=== PATIENT | male | born 1995 | race Two or more races ===

== ENCOUNTER 2017-07-31 20:15 | Emergency (ER) | payer MEDICAID | END 2017-07-31 20:41 | disposition left against medical advice (07) | LOC: M ED 20:15 | DX: K92.1 Melena (principal); Z53.21 Procedure and treatment not carried out due to patient leaving prior to being seen by health care provider ==

== ENCOUNTER → 2018-09-03 | Outpatient (REF) | payer BC | LOC: M LAB REF 16:30 | PROVIDERS: ATTEND Plastic Surgery Surgery of the Hand | DX: D23.30 Other benign neoplasm of skin of unspecified part of face (principal) ==

== ENCOUNTER → 2018-11-01 | Outpatient (REF) | payer BC, OTHER, MEDICAID ==
[2018-11-01 19:22] LABS: APPEARANCE, URINE CLEAR (CLEAR); BACTERIA, URINE AUTO NEGATIVE (NEGATIVE); BILIRUBIN, URINE AUTO NEGATIVE (NEGATIVE); BLOOD, URINE BLOOD 1+ (NEGATIVE); COLOR, URINE YELLOW (YELLOW); GLUCOSE, URINE (UA) AUTO NEGATIVE (NEGATIVE); KETONE, URINE AUTO NEGATIVE (NEGATIVE); LEUKOCYTE ESTERASE, URINE AUTO NEGATIVE (NEGATIVE); NITRITE, URINE AUTO NEGATIVE (NEGATIVE); PROTEIN, URINE AUTO 3+ mg/dL (NEGATIVE); RBC, URINE AUTO 6 /HPF (0-3); SPECIFIC GRAVITY URINE AUTO 1.013 (1.002-1.035); SQUAMOUS EPITHELIAL CELL UR AU 0 /HPF (0-6); UROBILINOGEN, URINE AUTO 0.2 mg/dL (0.0-2.0); WBC, URINE AUTO 2 /HPF (0-3)
[2018-11-01 20:52] LABS: CHLAMYDIA DNA AMPLIFICATION NEGATIVE (NEGATIVE); GC DNA AMPLIFICATION NEGATIVE (NEGATIVE)
[2018-11-04 10:50] LABS: HIV 1&2 SCREEN CENTAUR NEGATIVE (NEGATIVE)
== END ==
LOC: M SFHCADAM 15:09
PROVIDERS: ATTEND Family Medicine
DX: N48.89 Other specified disorders of penis (principal); Z72.51 High risk heterosexual behavior

== ENCOUNTER → 2021-02-02 | Outpatient (CLI) | payer BC, OTHER, MEDICAID ==
--- NOTE | 2021-02-03 00:18 | REP ---
INDICATION: AWAITING ORGAN TRANSPLANT COMPARISON: None. TECHNIQUE: PA and lateral. FINDINGS: The mediastinum and cardiac silhouette are normal. Tessio catheter with tip in the right atrium. The lung gaspar are clear and without acute consolidation, effusion, or pneumothorax. The skeletal structures are intact and normal. IMPRESSION: No acute cardiopulmonary process. <Electronically signed by Elian Kirkland > 02/03/21 0014
== END ==
LOC: M ADAMS 13:06
PROVIDERS: ATTEND Internal Medicine Nephrology
DX: Z76.82 Awaiting organ transplant status (principal)

== ENCOUNTER → 2021-02-08 | Outpatient (CLI) | payer BC ==
[2021-02-08 17:29] LABS: BASO % 0.7 % (0.0-1.0); EOS # 0.2 10^3/uL (0.0-0.5); EOS % 3.2 % (0.0-3.0); HEMOGLOBIN 10.9 g/dl (13.5-17.5); LYMPH # 1.8 10^3/uL (1.5-5.0); LYMPH % 30.5 % (24.0-44.0); MEAN CORPUSCULAR HGB CONC 32.1 g/dl (32.0-36.5); MEAN CORPUSCULAR VOLUME 84.4 fl (80.0-96.0); MONO # 0.6 10^3/uL (0.0-0.8); MONO % 10.1 % (2.0-8.0); NEUTROPHILS # 3.3 10^3/uL (1.5-8.5); NEUTROPHILS % 55.2 % (36.0-66.0); PLATELET COUNT, AUTOMATED 247 10^3/uL (150-450); RED BLOOD COUNT 4.03 10^6/uL (4.30-6.10); WHITE BLOOD COUNT 5.9 10^3/uL (4.0-10.0)
== END ==
LOC: M WUC 14:58
PROVIDERS: ATTEND Physician Assistant
DX: K92.1 Melena (principal)

== ENCOUNTER → 2021-03-02 | Outpatient (CLI) | payer BC | LOC: M LABSMTC 11:15 | PROVIDERS: ATTEND Surgery Vascular Surgery | DX: Z01.812 Encounter for preprocedural laboratory examination (principal); Z11.52 Encounter for screening for COVID-19; N18.6 End stage renal disease ==

== ENCOUNTER 2021-03-21 20:24 | Emergency (ER) | payer BC ==
[~2021-03-21] VITALS: Ht 188 cm; Wt 81.6 kg
[2021-03-21 20:25] VITALS: BP 141/95
[2021-03-21] MEDS ORDERED: SEVE800T3 (20:49)
[2021-03-21] MEDS ORDERED: AMLO1TAB24 (20:49)
[2021-03-21] MEDS ORDERED: CALC1CAP31 (20:49)
== END 2021-03-21 21:57 | disposition left against medical advice (07) ==
LOC: M ED 20:24
DX: Z53.21 Procedure and treatment not carried out due to patient leaving prior to being seen by health care provider (principal)

== ENCOUNTER → 2021-03-22 | Outpatient (CLI) | payer BC ==
[~2021-03-22] MED LIST: AMLO1TAB24; CALC1CAP31; SEVE800T3
== END ==
LOC: M RAD 09:53
PROVIDERS: ATTEND Surgery Vascular Surgery
DX: N18.6 End stage renal disease (principal); R10.9 Unspecified abdominal pain

== ENCOUNTER → 2021-04-13 | Outpatient (CLI) | payer MEDICARE, BC ==
--- NOTE | 2021-04-13 13:14 | REP ---
INDICATION: COMPLICATIONS WITH PD CATHETER. COMPARISON: 03/22/2021 also without contrast on the only prior. TECHNIQUE: Standard helical technique without intravenous or oral bowel preparatory contrast. FINDINGS: The lung bases are clear and unchanged. There is a small amount of free fluid in the abdomen. The peritoneal dialysis catheter is coiled in the anterior right upper quadrant along the liver edge and hepatic flexure of the colon. There is no evidence of free intraperitoneal air. There is no change in appearance of the solid intra-organs or gallbladder. There is no change in appearance of the pancreas, adrenal glands, or kidneys. There is no change in appearance of the abdominal aorta or para-regions. There is no significant change in appearance of the bowel loops. There is a moderate amount of free fluid in the pelvis which has increased from the prior exam. Bone window technique throughout the examination shows no significant change in the appearance of the imaged osseous structures. IMPRESSION: There has been a change in the position of the peritoneal dialysis catheter. It was previously located in the right pericolic gutter. Findings as described above. <Electronically signed by Garrison Xiong > 04/13/21 [id number]
== END ==
LOC: M RAD 12:48
PROVIDERS: ATTEND Nurse Practitioner Family
DX: T85.611A Breakdown (mechanical) of intraperitoneal dialysis catheter, initial encounter (principal)

== ENCOUNTER → 2021-05-24 | Outpatient (POV) | payer BC, MEDICARE ==
[~2021-05-24] VITALS: Ht 188 cm; Wt 79.5 kg
[2021-05-24 10:45] VITALS: BP 132/78
--- NOTE | 2021-05-26 12:34 | IRPN ---
[facility] IR Progress Note IR Progress Note DATE: May 24, 2021 History: Patient had a right chest port placed in November of this year, for sudden onset renal failure. PermCath was placed in [place]. Patient is no longer on hemodialysis and is dialyzing through his peritoneal catheter. PermCath has not been used for dialysis in over a month. Patient would like the PermCath removed. ON EXAMINATION: Right chest permacath in place. No cellulitis. Imaging: I personally reviewed the chest x-ray dated 02/02/2021. There is a right IJ PermCath. Tip at the cavoatrial junction. IMPRESSION: We discussed the risks and benefits of the procedure and patient is willing to proceed. We have scheduled the patient for PermCath removal. Thank you for this referral Allergies Coded Allergies: erythromycin base (Verified Allergy, Unknown, 03/21/21) itching sulfisoxazole (Verified Allergy, Unknown, 03/21/21) itching VS,Fishbone, I+O VS, Fishbone, I+O Vital Signs Date Time Temp Pulse Resp B/P (MAP) Pulse Ox O2 Delivery O2 Flow Rate FiO2 05/24/21 10:45 98.3 71 20 132/78 (96) 97 Room Air JEAN MEZA MD May 26, 2021 12:34
== END ==
LOC: M IRPOV 10:39
PROVIDERS: ATTEND Radiology Diagnostic Radiology
DX: Z45.2 Encounter for adjustment and management of vascular access device (principal); Z95.828 Presence of other vascular implants and grafts; Z88.1 Allergy status to other antibiotic agents

== ENCOUNTER → 2021-05-25 | Outpatient (CLI) | payer BC, MEDICARE ==
[~2021-05-25] MED LIST changes: +LIDOCAINE 1% MDV 20ML VIAL As Ordered ONE
[2021-05-25 14:16] VITALS: BP 146/84
--- NOTE | 2021-05-26 12:36 | IRPON ---
IR Postoperative Note Date Of Procedure: May 25, 2021 Time Of Procedure: 16:00 IR Postoperative Note IR PermCath removal. Clinical indication: Renal failure. The PermCath site was prepped and draped in the usual sterile fashion. Lidocaine was used for local anesthesia. The catheter cuff was dissected out of the soft tissues using blunt dissection. The catheter was removed in it's entirety. Patient tolerated the procedure well, hemostasis achieved and a sterile dressing was applied to the site. Blood loss: Less than 5 mL. Complications: None. Impression: Successful removal of PermCath. JEAN MEZA MD May 26, 2021 12:36
== END ==
LOC: M IRPRO 13:35
PROVIDERS: ATTEND Radiology Diagnostic Radiology
DX: Z45.2 Encounter for adjustment and management of vascular access device (principal); N18.6 End stage renal disease

== ENCOUNTER → 2021-11-19 | Outpatient (REF) | payer BC, MEDICARE ==
[~2021-11-19] MED LIST changes: +CINA30TA4 PO; -LIDOCAINE 1% MDV 20ML VIAL As Ordered ONE; +LOSA100T5 PO; +VELP5CHW PO
[2021-11-19 14:47] LABS: APPEARANCE, BODY FLUID CLEAR (CLEAR); PERITONEAL DIALYSATE FL COLOR COLORLESS (COLORLESS); SOURCE, BODY FLUID PERITONEAL DIALYSATE
== END ==
LOC: M LAB REF 14:21
PROVIDERS: ATTEND Internal Medicine Nephrology
DX: K66.8 Other specified disorders of peritoneum (principal)

== ENCOUNTER → 2021-12-14 | Outpatient (CLI) | payer BC, MEDICARE | LOC: M RAD 13:14 | PROVIDERS: ATTEND Internal Medicine Nephrology | DX: R10.84 Generalized abdominal pain (principal); T85.691S Other mechanical complication of intraperitoneal dialysis catheter, sequela ==

== ENCOUNTER 2021-12-15 12:27 | Inpatient (IN) | payer BC, MEDICARE ==
[~2021-12-15] VITALS: Ht 188 cm; Wt 81.2 kg
[~2021-12-15 12:27] MED LIST changes: -CINA30TA4 PO; -LOSA100T5 PO; -VELP5CHW PO
[2021-12-15] MEDS ORDERED: MORPHINE 4 MG/ML 1ML VIAL/SYRINGE IV ONE (13:25)
[2021-12-15] MEDS ORDERED: ISOVUE-370 76% 100ML VIAL As Ordered ONE (13:48)
[2021-12-15 14:29] LABS: BASO % 0.2 % (0.0-1.0); EOS # 0.3 10^3/uL (0.0-0.5); HEMATOCRIT 24.3 % (42.0-52.0); HEMOGLOBIN 8.2 g/dl (13.5-17.5); LYMPH % 12.6 % (24.0-44.0); MEAN CORPUSCULAR HEMOGLOBIN 27.6 pg (27.0-33.0); MEAN CORPUSCULAR HGB CONC 33.7 g/dl (32.0-36.5); MEAN CORPUSCULAR VOLUME 81.8 fl (80.0-96.0); MONO # 0.6 10^3/uL (0.0-0.8); MONO % 6.7 % (2.0-8.0); NEUTROPHILS # 6.3 10^3/uL (1.5-8.5); PLATELET COUNT, AUTOMATED 178 10^3/uL (150-450); RED BLOOD COUNT 2.97 10^6/uL (4.30-6.10); WHITE BLOOD COUNT 8.3 10^3/uL (4.0-10.0)
[2021-12-15 14:43] LABS: RSV AMPLIFICATION NEGATIVE (NEGATIVE)
[2021-12-15 14:48] LABS: INR 1.24
[2021-12-15 14:49] LABS: PARTIAL THROMBOPLASTIN TIME 37.8 SECONDS (25.9-37.0)
[2021-12-15 14:56] LABS: ALBUMIN 2.7 GM/DL (3.2-5.2); ALT/SGPT 11 U/L (12-78); BILIRUBIN,DIRECT < 0.1 MG/DL (0.0-0.2); BILIRUBIN,TOTAL 0.3 MG/DL (0.2-1.0); BLOOD UREA NITROGEN 102 MG/DL (7-18); CALCIUM LEVEL 9.2 MG/DL (8.5-10.1); CARBON DIOXIDE LEVEL 23 MEQ/L (21-32); CHLORIDE LEVEL 104 MEQ/L (98-107); GLOMERULAR FILTRATION RATE 4.4 (>60); GLUCOSE, FASTING 101 MG/DL (70-100); LIPASE 184 U/L (73-393); POTASSIUM SERUM 4.4 MEQ/L (3.5-5.1); SODIUM LEVEL 135 MEQ/L (136-145); TOTAL PROTEIN 5.6 GM/DL (6.4-8.2)
[2021-12-15] MEDS ORDERED: VANCOMYCIN HCL 1,750 MG in NS 250 ML IV ONE (15:35)
[2021-12-15 15:38] LABS: SOURCE, BODY FLUID PERITONEAL
[2021-12-15 15:39] LABS: APPEARANCE, BODY FLUID TURBID (CLEAR); PERITONEAL FL COLOR PALE YELLOW (COLORLESS); SPEC. GRAVITY BODY FLUIDS 1.022 (NOT ESTABLISHED)
[2021-12-15] MEDS ORDERED: VANCOMYCIN HCL 750 MG, VIAL MATE ADAPTER 1 EACH in NS 250 ML IV ONE (15:45)
[2021-12-15] MEDS ORDERED: VANCOMYCIN HCL 500 MG in D5W MINI-BAG PLUS 100 ML IV ONE (15:45)
[2021-12-15 16:48] LABS: SOURCE, BODY FLUID ALBUMIN PERITONEAL; SOURCE, BODY FLUID GLUCOSE PERITONEAL; SOURCE, BODY FLUID TOT PROTEIN PERITONEAL
[2021-12-15] MEDS ORDERED: ACETAMINOPHEN TAB 650MG DOSE (2X325MG) PO PRN (17:55)
[2021-12-15] MEDS ORDERED: LOSA100T5 PO (18:44)
[2021-12-15] MEDS ORDERED: VELP5CHW PO (18:44)
[2021-12-15] MEDS ORDERED: CINA30TA4 PO (18:44)
[2021-12-15] MEDS ORDERED: HOME MED LIST COMPLETE! XX SCH (18:45)
[2021-12-15] MEDS ORDERED: VANCOMYCIN 1000MG/20ML VIAL IP ONE (18:50)
[2021-12-15] MEDS ORDERED: GENTAMICIN SULF 80MG/2ML VIAL IP ONE (18:50)
[2021-12-15 21:00] VITALS: BP 135/81
[2021-12-15] MEDS ORDERED: HEPARIN SOD (PORCINE) 5000UNITS/ML 1ML VIAL/SYRINGE PD ONE (22:00)
[2021-12-16 05:28] VITALS: BP 115/62
[2021-12-16] MEDS: HEPARIN SOD (PORCINE) 5000UNITS/ML 1ML VIAL/SYRINGE SC SCH ×2 (06:00→13:04)
[2021-12-16 07:57] LABS: APPEARANCE, BODY FLUID TURBID (CLEAR); PERITONEAL DIALYSATE FL COLOR PALE YELLOW (COLORLESS); SOURCE, BODY FLUID PERITONEAL DIALYSATE
[2021-12-16] MEDS: SUCROFERRIC OXYHYDROXIDE 500MG CHEW TAB (VELPHORO) PO SCH ×3 (08:00→17:52)
[2021-12-16 08:04] LABS: BASO % 0.2 % (0.0-1.0); EOS # 0.3 10^3/uL (0.0-0.5); EOS % 3.8 % (0.0-3.0); HEMATOCRIT 23.3 % (42.0-52.0); HEMOGLOBIN 7.6 g/dl (13.5-17.5); LYMPH # 0.9 10^3/uL (1.5-5.0); LYMPH % 13.9 % (24.0-44.0); MEAN CORPUSCULAR HEMOGLOBIN 26.3 pg (27.0-33.0); MEAN CORPUSCULAR HGB CONC 32.6 g/dl (32.0-36.5); MEAN CORPUSCULAR VOLUME 80.6 fl (80.0-96.0); MONO # 0.5 10^3/uL (0.0-0.8); MONO % 8.1 % (2.0-8.0); NEUTROPHILS # 4.8 10^3/uL (1.5-8.5); NEUTROPHILS % 73.5 % (36.0-66.0); PLATELET COUNT, AUTOMATED 182 10^3/uL (150-450); RED BLOOD COUNT 2.89 10^6/uL (4.30-6.10); WHITE BLOOD COUNT 6.5 10^3/uL (4.0-10.0)
[2021-12-16 08:32] LABS: CALCIUM LEVEL 9.4 MG/DL (8.5-10.1); CREATININE FOR GFR 13.3 MG/DL (0.70-1.30); GLOMERULAR FILTRATION RATE 4.9 (>60); MAGNESIUM LEVEL 2.4 MG/DL (1.8-2.4); POTASSIUM SERUM 4.3 MEQ/L (3.5-5.1)
[2021-12-16] MEDS ORDERED: DARBEPOETIN 100 MCG/0.5 ML *NON-DIALYSIS* SYRINGE (J0881) SC SCH (09:00)
[2021-12-16] MEDS ORDERED: CINACALCET 30 MG TAB (SENSIPAR) PO SCH (09:00)
[2021-12-16 09:11] LABS: PERCENT SATURATION 21.2 % (19.7-50.0)
[2021-12-16 14:00] VITALS: BP 122/68
[2021-12-16] MEDS ORDERED: GENTAMICIN SULF 80MG/2ML VIAL IP ONE (15:25)
[2021-12-16] MEDS ORDERED: VANCOMYCIN 1000MG/20ML VIAL IP ONE (15:25)
== END 2021-12-16 18:49 | disposition home or self-care (01) | DRG 721 ==
LOC: M ED 12:27 → M ED INP 17:53 → ENRESERV 19:17 → M MSPAV 21:00
PROVIDERS: ADMIT Family Medicine; ATTEND Family Medicine
DX: T80.29XA Infection following other infusion, transfusion and therapeutic injection, initial encounter (principal); K65.9 Peritonitis, unspecified; N18.6 End stage renal disease; N25.81 Secondary hyperparathyroidism of renal origin; I12.0 Hypertensive chronic kidney disease with stage 5 chronic kidney disease or end stage renal disease; D63.1 Anemia in chronic kidney disease; Z99.2 Dependence on renal dialysis; B96.1 Klebsiella pneumoniae [K. pneumoniae] as the cause of diseases classified elsewhere; Z88.8 Allergy status to other drugs, medicaments and biological substances; Z87.891 Personal history of nicotine dependence; Z88.2 Allergy status to sulfonamides; Y84.1 Kidney dialysis as the cause of abnormal reaction of the patient, or of later complication, without mention of misadventure at the time of the procedure

== ENCOUNTER 2022-01-17 12:54 | Emergency (ER) | payer MEDICARE, MEDICAID, BC ==
[~2022-01-17] VITALS: Ht 188 cm; Wt 81.8 kg
[2022-01-17 12:54] VITALS: BP 99/52
[~2022-01-17 12:54] MED LIST changes: +CINA30TA4 PO; +LOSA100T5 PO; +VELP5CHW PO
[2022-01-17] MEDS ORDERED: ACETAMINOPHEN 500 MG TAB PO ONE (15:00)
[2022-01-17] MEDS ORDERED: LIDOCAINE 1% MDV 20ML VIAL SC ONE (15:00)
[2022-01-17] MEDS ORDERED: NEOSPORIN OINT 0.9 GM PKT TOP ONE (16:05)
[2022-01-17] MEDS ORDERED: BACI500O8 TOP (16:05)
== END 2022-01-17 16:37 | disposition home or self-care (01) ==
LOC: M ED 12:54
DX: S61.213A Laceration without foreign body of left middle finger without damage to nail, initial encounter (principal); T70.4XXA Effects of high-pressure fluids, initial encounter; I10 Essential (primary) hypertension; K21.9 Gastro-esophageal reflux disease without esophagitis; N18.9 Chronic kidney disease, unspecified; Y92.9 Unspecified place or not applicable; Y93.9 Activity, unspecified; Y99.9 Unspecified external cause status; Z79.899 Other long term (current) drug therapy; Z88.1 Allergy status to other antibiotic agents; Z88.2 Allergy status to sulfonamides

== ENCOUNTER 2023-07-01 19:06 | Emergency (ER) | payer MEDICARE, MEDICAID ==
[~2023-07-01] VITALS: Ht 188 cm; Wt 85.5 kg
[~2023-07-01 19:06] MED LIST changes: +BACI500O8 TOP
[2023-07-01 21:52] VITALS: BP 131/81; TEMP 98.3; O2SAT 100
== END 2023-07-01 21:54 | disposition home or self-care (01) ==
LOC: M ED 19:06
DX: S62.316A Displaced fracture of base of fifth metacarpal bone, right hand, initial encounter for closed fracture (principal); I10 Essential (primary) hypertension; E78.5 Hyperlipidemia, unspecified; N18.6 End stage renal disease; F17.200 Nicotine dependence, unspecified, uncomplicated; F12.10 Cannabis abuse, uncomplicated; Z88.1 Allergy status to other antibiotic agents; Z88.2 Allergy status to sulfonamides; Y92.9 Unspecified place or not applicable; Y93.89 Activity, other specified; Y99.9 Unspecified external cause status; Z79.811 Long term (current) use of aromatase inhibitors; Z79.899 Other long term (current) drug therapy

== ENCOUNTER → 2023-07-12 | Outpatient (CLI) | payer MEDICARE, MEDICAID | LOC: M SOG 08:04 | PROVIDERS: ATTEND Physician Assistant | DX: S62.316A Displaced fracture of base of fifth metacarpal bone, right hand, initial encounter for closed fracture (principal); Y93.9 Activity, unspecified; Y92.9 Unspecified place or not applicable ==

== ENCOUNTER → 2023-07-26 | Outpatient (CLI) | payer MEDICARE, MEDICAID | LOC: M SOG 08:39 | PROVIDERS: ATTEND Physician Assistant | DX: S62.316D Displaced fracture of base of fifth metacarpal bone, right hand, subsequent encounter for fracture with routine healing (principal) ==

== ENCOUNTER → 2023-07-26 | Outpatient (CLI) | payer MEDICARE, MEDICAID | LOC: M CARPUL 08:04 | PROVIDERS: ATTEND Nurse Practitioner | DX: Z01.818 Encounter for other preprocedural examination (principal); I42.3 Endomyocardial (eosinophilic) disease; N18.6 End stage renal disease; S62.316D Displaced fracture of base of fifth metacarpal bone, right hand, subsequent encounter for fracture with routine healing ==

== ENCOUNTER → 2023-08-09 | Outpatient (CLI) | payer MEDICARE, MEDICAID | LOC: M SOG 08:02 | PROVIDERS: ATTEND Physician Assistant | DX: S62.316D Displaced fracture of base of fifth metacarpal bone, right hand, subsequent encounter for fracture with routine healing (principal) ==

== ENCOUNTER → 2023-09-06 | Outpatient (CLI) | payer MEDICARE, MEDICAID | LOC: M SOG 09:31 | PROVIDERS: ATTEND Physician Assistant | DX: S62.316A Displaced fracture of base of fifth metacarpal bone, right hand, initial encounter for closed fracture (principal); Y93.9 Activity, unspecified; Y92.9 Unspecified place or not applicable ==

== ENCOUNTER → 2024-04-22 | Outpatient (CLI) | payer MEDICARE, MEDICAID ==
[2024-04-22 18:01] LABS: BASO % 0.3 % (0.0-1.0); EOS % 0.7 % (0.0-3.0); HEMATOCRIT 38.6 % (42.0-52.0); HEMOGLOBIN 12.5 g/dl (13.5-17.5); LYMPH # 0.7 10^3/uL (1.5-5.0); MEAN CORPUSCULAR HGB CONC 32.4 g/dl (32.0-36.5); MEAN CORPUSCULAR VOLUME 86.5 fl (80.0-96.0); MONO # 0.5 10^3/uL (0.0-0.8); MONO % 7.7 % (2.0-8.0); NEUTROPHILS # 4.7 10^3/uL (1.5-8.5); NEUTROPHILS % 78.3 % (36.0-66.0); PLATELET COUNT, AUTOMATED 251 10^3/uL (150-450); RED BLOOD COUNT 4.46 10^6/uL (4.30-6.10); WHITE BLOOD COUNT 5.9 10^3/uL (4.0-10.0)
[2024-04-22 18:20] LABS: ALBUMIN 3.8 G/DL (3.2-5.2); ALKALINE PHOSPHATASE 70 U/L (46-116); ALT/SGPT 13 U/L (7.0-40); AST/SGOT 11 U/L (<34); BILIRUBIN,DIRECT < 0.1 MG/DL (<0.4); BILIRUBIN,TOTAL 0.3 MG/DL (0.3-1.2); BLOOD UREA NITROGEN 24 MG/DL (9-23); CALCIUM LEVEL 10.1 MG/DL (8.5-10.1); CARBON DIOXIDE LEVEL 23 MMOL/L (20-31); CHLORIDE LEVEL 111 MMOL/L (98-107); CREATININE FOR GFR 1.31 MG/DL (0.70-1.30); GLOMERULAR FILTRATION RATE > 60.0 (>60); GLUCOSE, FASTING 93 MG/DL (60-100); LDH LACTATE DEHYDROGENASE 264 U/L (120-246); MAGNESIUM LEVEL 1.5 MG/DL (1.8-2.4); PHOSPHORUS LEVEL 1.3 MG/DL (2.5-4.9); POTASSIUM SERUM 4.5 MMOL/L (3.5-5.1); SODIUM LEVEL 142 MMOL/L (136-145); TOTAL PROTEIN 6.2 G/DL (5.7-8.2)
== END ==
LOC: M ADAMS 13:15
PROVIDERS: ATTEND Internal Medicine Nephrology
DX: N39.0 Urinary tract infection, site not specified (principal); D63.1 Anemia in chronic kidney disease; Z51.81 Encounter for therapeutic drug level monitoring; E78.5 Hyperlipidemia, unspecified; Z94.0 Kidney transplant status; R80.9 Proteinuria, unspecified

== ENCOUNTER → 2024-05-14 | Outpatient (CLI) | payer MEDICARE, MEDICAID ==
[2024-05-14 15:41] LABS: BASO % 0.4 % (0.0-1.0); EOS # 0.1 10^3/uL (0.0-0.5); EOS % 0.8 % (0.0-3.0); HEMATOCRIT 40.1 % (42.0-52.0); HEMOGLOBIN 12.5 g/dl (13.5-17.5); LYMPH % 11.1 % (24.0-44.0); MEAN CORPUSCULAR HEMOGLOBIN 27.8 pg (27.0-33.0); MEAN CORPUSCULAR HGB CONC 31.2 g/dl (32.0-36.5); MEAN CORPUSCULAR VOLUME 89.1 fl (80.0-96.0); MONO % 10.5 % (2.0-8.0); NEUTROPHILS % 75.5 % (36.0-66.0); PLATELET COUNT, AUTOMATED 211 10^3/uL (150-450); WHITE BLOOD COUNT 9.3 10^3/uL (4.0-10.0)
[2024-05-14 15:47] LABS: LDH LACTATE DEHYDROGENASE 337 U/L (120-246)
[2024-05-14 15:48] LABS: ALBUMIN 3.8 G/DL (3.2-5.2); ALKALINE PHOSPHATASE 84 U/L (46-116); ALT/SGPT 16 U/L (7.0-40); AST/SGOT 16 U/L (<34); BILIRUBIN,DIRECT 0.1 MG/DL (<0.4); BILIRUBIN,TOTAL 0.4 MG/DL (0.3-1.2); BLOOD UREA NITROGEN 25 MG/DL (9-23); CALCIUM LEVEL 10.2 MG/DL (8.5-10.1); CARBON DIOXIDE LEVEL 25 MMOL/L (20-31); CHLORIDE LEVEL 112 MMOL/L (98-107); CREATININE FOR GFR 1.23 MG/DL (0.70-1.30); GLOMERULAR FILTRATION RATE > 60.0 (>60); GLUCOSE, FASTING 63 MG/DL (60-100); MAGNESIUM LEVEL 1.5 MG/DL (1.8-2.4); PHOSPHORUS LEVEL 1.9 MG/DL (2.5-4.9); POTASSIUM SERUM 4.1 MMOL/L (3.5-5.1); SODIUM LEVEL 141 MMOL/L (136-145); TOTAL PROTEIN 6.4 G/DL (5.7-8.2)
== END ==
LOC: M LABDRWAD 11:15
PROVIDERS: ATTEND Internal Medicine Nephrology
DX: N20.0 Calculus of kidney (principal); E78.5 Hyperlipidemia, unspecified; D53.1 Other megaloblastic anemias, not elsewhere classified

== ENCOUNTER → 2024-05-22 | Outpatient (REF) | payer MEDICARE, MEDICAID ==
[2024-05-22 18:10] LABS: LDH LACTATE DEHYDROGENASE 395 U/L (120-246)
[2024-05-22 18:12] LABS: ALBUMIN 3.9 G/DL (3.2-5.2); ALKALINE PHOSPHATASE 84 U/L (40-129); ALT/SGPT 19 U/L (7.0-40); AST/SGOT 19 U/L (<34); BASO % 0.6 % (0.0-1.0); BILIRUBIN,DIRECT 0.1 MG/DL (<0.4); BILIRUBIN,TOTAL 0.4 MG/DL (0.3-1.2); BLOOD UREA NITROGEN 31 MG/DL (9-23); CALCIUM LEVEL 10.3 MG/DL (8.5-10.1); CARBON DIOXIDE LEVEL 24 MMOL/L (20-31); CHLORIDE LEVEL 109 MMOL/L (98-107); CREATININE FOR GFR 1.36 MG/DL (0.70-1.30); EOS # 0.1 10^3/uL (0.0-0.5); EOS % 1.1 % (0.0-3.0); GLOMERULAR FILTRATION RATE > 60.0 (>60); GLUCOSE, FASTING 93 MG/DL (60-100); HEMATOCRIT 41.8 % (42.0-52.0); LYMPH % 15.5 % (24.0-44.0); MAGNESIUM LEVEL 1.7 MG/DL (1.8-2.4); MEAN CORPUSCULAR HEMOGLOBIN 27.5 pg (27.0-33.0); MEAN CORPUSCULAR HGB CONC 31.1 g/dl (32.0-36.5); MEAN CORPUSCULAR VOLUME 88.4 fl (80.0-96.0); MONO # 0.9 10^3/uL (0.0-0.8); MONO % 14.1 % (2.0-8.0); NEUTROPHILS # 4.2 10^3/uL (1.5-8.5); NEUTROPHILS % 67.6 % (36.0-66.0); PHOSPHORUS LEVEL 2.5 MG/DL (2.5-4.9); PLATELET COUNT, AUTOMATED 244 10^3/uL (150-450); POTASSIUM SERUM 4.5 MMOL/L (3.5-5.1); RED BLOOD COUNT 4.73 10^6/uL (4.30-6.10); SODIUM LEVEL 138 MMOL/L (136-145); TOTAL PROTEIN 6.8 G/DL (5.7-8.2); WHITE BLOOD COUNT 6.3 10^3/uL (4.0-10.0)
== END ==
LOC: M LABDRAWP 17:21
PROVIDERS: ATTEND Nurse Practitioner Family
DX: D53.1 Other megaloblastic anemias, not elsewhere classified (principal); E78.6 Lipoprotein deficiency; R80.9 Proteinuria, unspecified; Z94.0 Kidney transplant status; Z51.81 Encounter for therapeutic drug level monitoring

== ENCOUNTER → 2024-06-24 | Outpatient (CLI) | payer MEDICARE, MEDICAID ==
[2024-06-24 18:29] LABS: HEMATOCRIT 36.8 % (42.0-52.0); HEMOGLOBIN 11.7 g/dl (13.5-17.5); MEAN CORPUSCULAR HEMOGLOBIN 27.4 pg (27.0-33.0); MEAN CORPUSCULAR HGB CONC 31.8 g/dl (32.0-36.5); MEAN CORPUSCULAR VOLUME 86.2 fl (80.0-96.0); PLATELET COUNT, AUTOMATED 197 10^3/uL (150-450); RED BLOOD COUNT 4.27 10^6/uL (4.30-6.10); WHITE BLOOD COUNT 5.8 10^3/uL (4.0-10.0)
[2024-06-24 18:33] LABS: APPEARANCE, URINE CLEAR (CLEAR); BACTERIA, URINE AUTO NEGATIVE (NEGATIVE); BILIRUBIN, URINE AUTO NEGATIVE (NEGATIVE); BLOOD, URINE BLOOD NEGATIVE (NEGATIVE); COLOR, URINE YELLOW (YELLOW); GLUCOSE, URINE (UA) AUTO NEGATIVE (NEGATIVE); KETONE, URINE AUTO NEGATIVE (NEGATIVE); LEUKOCYTE ESTERASE, URINE AUTO NEGATIVE (NEGATIVE); NITRITE, URINE AUTO NEGATIVE (NEGATIVE); PROTEIN, URINE AUTO NEGATIVE (NEGATIVE); RBC, URINE AUTO 0 /HPF (0-3); SPECIFIC GRAVITY URINE AUTO 1.014 (1.002-1.035); SQUAMOUS EPITHELIAL CELL UR AU 0 /HPF (0-6); UROBILINOGEN, URINE AUTO 0.2 mg/dL (0.0-2.0); WBC, URINE AUTO 0 /HPF (0-3)
[2024-06-24 19:00] LABS: TOTAL PROTEIN,RANDOM URINE 11.1 MG/DL (0.0-14.0)
[2024-06-24 19:05] LABS: CREATININE,RANDOM URINE 71.4 MG/DL
[2024-06-24 19:05] LABS: ALBUMIN 3.9 G/DL (3.2-5.2); ALKALINE PHOSPHATASE 95 U/L (40-129); ALT/SGPT 28 U/L (7.0-40); AST/SGOT 15 U/L (<34); BILIRUBIN,TOTAL 0.6 MG/DL (0.3-1.2); BLOOD UREA NITROGEN 28 MG/DL (9-23); CALCIUM LEVEL 10.2 MG/DL (8.5-10.1); CARBON DIOXIDE LEVEL 24 MMOL/L (20-31); CHLORIDE LEVEL 107 MMOL/L (98-107); CREATININE FOR GFR 1.21 MG/DL (0.70-1.30); GLOMERULAR FILTRATION RATE > 60.0 (>60); GLUCOSE, FASTING 96 MG/DL (60-100); MAGNESIUM LEVEL 1.6 MG/DL (1.8-2.4); PHOSPHORUS LEVEL 2.8 MG/DL (2.5-4.9); POTASSIUM SERUM 4.6 MMOL/L (3.5-5.1); SODIUM LEVEL 138 MMOL/L (136-145); TOTAL PROTEIN 6.9 G/DL (5.7-8.2)
[2024-06-27 09:03] LABS: FK 506 (TACROLIMUS) 5.8 mcg/L (5.0-20.0)
[2024-06-28 09:57] LABS: BK VIRUS DNA SOURCE Plasma; BKV DNA QUANT PCR PLASMA Not Detected copies/mL; log10 BKV DNA PLASMA Not Detected Log cps/mL
[2024-06-28 14:17] LABS: CMV QUANT DNA PCR (PLASMA) 267 IU/mL; CMV SOURCE Whole Blood; log10 CMV QN DNA P1 2.43 log IU/mL
== END ==
LOC: M LAB 17:16
PROVIDERS: ATTEND Internal Medicine Nephrology
DX: Z51.81 Encounter for therapeutic drug level monitoring (principal); Z79.899 Other long term (current) drug therapy

== ENCOUNTER → 2024-09-19 | Outpatient (CLI) | payer MEDICARE, MEDICAID ==
[2024-09-19 14:38] LABS: BASO % 0.3 % (0.0-1.0); EOS # 0.1 10^3/uL (0.0-0.5); EOS % 1.6 % (0.0-3.0); HEMATOCRIT 49.4 % (42.0-52.0); HEMOGLOBIN 15.5 g/dl (13.5-17.5); LYMPH # 1.4 10^3/uL (1.5-5.0); LYMPH % 23.2 % (24.0-44.0); MEAN CORPUSCULAR HEMOGLOBIN 26.1 pg (27.0-33.0); MEAN CORPUSCULAR HGB CONC 31.4 g/dl (32.0-36.5); MEAN CORPUSCULAR VOLUME 83.3 fl (80.0-96.0); MONO # 0.9 10^3/uL (0.0-0.8); MONO % 14.1 % (2.0-8.0); NEUTROPHILS # 3.8 10^3/uL (1.5-8.5); NEUTROPHILS % 60.5 % (36.0-66.0); PLATELET COUNT, AUTOMATED 264 10^3/uL (150-450); RED BLOOD COUNT 5.93 10^6/uL (4.30-6.10); WHITE BLOOD COUNT 6.2 10^3/uL (4.0-10.0)
[2024-09-19 14:39] LABS: LDH LACTATE DEHYDROGENASE 141 U/L (120-246)
[2024-09-19 14:40] LABS: ALBUMIN 4.2 G/DL (3.2-5.2); ALKALINE PHOSPHATASE 73 U/L (40-129); ALT/SGPT 20 U/L (7.0-40); AST/SGOT 9 U/L (<34); BILIRUBIN,DIRECT 0.1 MG/DL (<0.4); BILIRUBIN,TOTAL 0.4 MG/DL (0.3-1.2); BLOOD UREA NITROGEN 19 MG/DL (9-23); CALCIUM LEVEL 10.4 MG/DL (8.5-10.1); CARBON DIOXIDE LEVEL 26 MMOL/L (20-31); CHLORIDE LEVEL 105 MMOL/L (98-107); CREATININE FOR GFR 1.32 MG/DL (0.70-1.30); GLOMERULAR FILTRATION RATE > 60.0 (>60); GLUCOSE, FASTING 106 MG/DL (60-100); MAGNESIUM LEVEL 1.6 MG/DL (1.8-2.4); POTASSIUM SERUM 4.4 MMOL/L (3.5-5.1); SODIUM LEVEL 140 MMOL/L (136-145); TOTAL PROTEIN 7.2 G/DL (5.7-8.2)
[2024-09-22 21:47] LABS: CMV QUANT DNA PCR (PLASMA) Not Detected; CMV SOURCE Whole Blood; log10 CMV QN DNA P1 Not Detected log IU/mL
[2024-09-23 19:21] LABS: FK 506 (TACROLIMUS) 10.5 mcg/L (5.0-20.0)
[2024-09-23 21:07] LABS: BK VIRUS DNA SOURCE Plasma; BKV DNA QUANT PCR PLASMA Not Detected copies/mL; log10 BKV DNA PLASMA Not Detected Log cps/mL
== END ==
LOC: M LABDRWAD 08:32
PROVIDERS: ATTEND Nurse Practitioner Family
DX: N39.0 Urinary tract infection, site not specified (principal); Z51.81 Encounter for therapeutic drug level monitoring; E78.5 Hyperlipidemia, unspecified; Z94.0 Kidney transplant status; R80.9 Proteinuria, unspecified; D63.1 Anemia in chronic kidney disease; N18.9 Chronic kidney disease, unspecified

== ENCOUNTER → 2024-12-08 | Outpatient (CLI) | payer MEDICARE, MEDICAID ==
[2024-12-08 14:11] LABS: HEMATOCRIT 41.7 % (42.0-52.0); HEMOGLOBIN 13.4 g/dl (13.5-17.5); MEAN CORPUSCULAR HEMOGLOBIN 26.3 pg (27.0-33.0); MEAN CORPUSCULAR HGB CONC 32.1 g/dl (32.0-36.5); MEAN CORPUSCULAR VOLUME 81.8 fl (80.0-96.0); PLATELET COUNT, AUTOMATED 230 10^3/uL (150-450); WHITE BLOOD COUNT 6.4 10^3/uL (4.0-10.0)
[2024-12-08 14:14] LABS: ALBUMIN 3.9 G/DL (3.2-5.2); BILIRUBIN,TOTAL 0.4 MG/DL (0.3-1.2); CALCIUM LEVEL 10.1 MG/DL (8.5-10.1); CREATININE FOR GFR 1.23 MG/DL (0.70-1.30); GLOMERULAR FILTRATION RATE 82.5 (>60); MAGNESIUM LEVEL 1.5 MG/DL (1.8-2.4); PHOSPHORUS LEVEL 3.1 MG/DL (2.5-4.9); POTASSIUM SERUM 4.6 MMOL/L (3.5-5.1); TOTAL PROTEIN 6.5 G/DL (5.7-8.2)
[2024-12-11 14:16] LABS: BKV DNA QUANT PCR PLASMA Not Detected; log10 BKV DNA PLASMA Not Detected Log IU/mL
[2024-12-11 18:48] LABS: CMV QUANT DNA PCR (PLASMA) Not Detected; log10 CMV QN DNA P1 Not Detected log IU/mL
[2024-12-11 19:52] LABS: FK 506 (TACROLIMUS) 6.4 mcg/L (5.0-20.0)
== END ==
LOC: M LABDRWAD 09:36
PROVIDERS: ATTEND Internal Medicine Nephrology
DX: Z79.899 Other long term (current) drug therapy (principal)

== ENCOUNTER 2025-05-10 01:04 | Emergency (ER) | payer MEDICAID, MEDICARE ==
[~2025-05-10] VITALS: Ht 188 cm; Wt 96.6 kg
[2025-05-10] MEDS: NS (Normal Saline) 0.9% 1,000 ML IV ONE (01:21)
[2025-05-10 01:30] LABS: VENOUS BASE EXCESS -5.3 (-2.0-2.0); VENOUS HCO3 20.6 MMOL/L (23.0-27.0); VENOUS O2 SATURATION 78.8 % (60.0-80.0); VENOUS PARTIAL PRESSURE CO2 41.6 mmHg (38.0-50.0); VENOUS PARTIAL PRESSURE O2 45.8 mmHg (30.0-50.0); VENOUS PH 7.313 UNITS (7.330-7.430); VENOUS STANDARD HCO3 19.7 MMOL/L; VENOUS TOTAL CO2 21.9 MMOL/L (24.0-28.0)
[2025-05-10] MEDS: MORPHINE 4 MG/ML 1 ML VIAL IV ONE ×2 (01:30→03:30)
[2025-05-10] MEDS ORDERED: ISOVUE-370 76% 100 ML VIAL As Ordered ONE (01:32)
[2025-05-10 01:34] LABS: BASO # 0.0 10^3/uL (0.0-0.2); BASO % 0.4 % (0.0-1.0); EOS # 0.1 10^3/uL (0.0-0.5); EOS % 0.6 % (0.0-3.0); LYMPH # 1.6 10^3/uL (1.5-5.0); LYMPH % 14.8 % (24.0-44.0); MONO # 0.8 10^3/uL (0.0-0.8); MONO % 7.6 % (2.0-8.0); NEUTROPHILS # 8.4 10^3/uL (1.5-8.5); NEUTROPHILS % 75.5 % (36.0-66.0); PLATELET COUNT, AUTOMATED 239 10^3/uL (150-450)
[2025-05-10 01:46] LABS: INR 0.94
[2025-05-10 02:00] LABS: ETHYL ALCOHOL (ETHANOL) 0.173 % (0.000-0.010)
[2025-05-10 02:02] LABS: ALT/SGPT 30 U/L (7.0-40); AST/SGOT 27 U/L (<34); CALCIUM LEVEL 10.0 MG/DL (8.5-10.1); CARBON DIOXIDE LEVEL 22 MMOL/L (20-31); CHLORIDE LEVEL 103 MMOL/L (98-107); CK-MB VALUE MASS < 1.0 NG/ML (<3.6); CREATININE FOR GFR 1.40 MG/DL (0.70-1.30); GLOMERULAR FILTRATION RATE 70.2 (>60); POTASSIUM SERUM 4.2 MMOL/L (3.5-5.1); SODIUM LEVEL 139 MMOL/L (136-145)
[2025-05-10 02:07] LABS: CPK CREATINE PHOSPHOKINASE 176 U/L (46-171)
[2025-05-10] MEDS: PERCOCET 5MG/325MG TAB PO ONE (03:30)
[2025-05-10] MEDS: TETANUS/DIPHTH/ACEL. PERTUSSIS 0.5 ML SYR IM.IMMUN ONE (03:30)
[2025-05-10] MEDS: AMPICILLIN SOD/SULBACTAM SOD 3 GM in DEXTROSE 5% (D5W) MINI-BAG PLU 100 ML IV ONE (03:31)
[2025-05-10 07:37] VITALS: BP 129/79; TEMP 98.4; O2SAT 96
== END 2025-05-10 07:43 | disposition short-term general hospital (02) ==
LOC: M ED 01:04
DX: S00.11XA Contusion of right eyelid and periocular area, initial encounter (principal); S30.11XA Contusion of abdominal wall, initial encounter; S02.831A Fracture of medial orbital wall, right side, initial encounter for closed fracture; Y04.0XXA Assault by unarmed brawl or fight, initial encounter; J34.2 Deviated nasal septum; Z94.0 Kidney transplant status; Z88.1 Allergy status to other antibiotic agents; Z88.2 Allergy status to sulfonamides; Y92.89 Other specified places as the place of occurrence of the external cause; Y93.89 Activity, other specified; Y99.9 Unspecified external cause status; Z23 Encounter for immunization
CPT/HCPCS: 70450; 70487; 71045; 71260; 72125; 74177; 80047; 80048; 80076; 82077; 82150; 82550; 82553; 82803; 83605; 83690; 84484; 85025; 85610; 85730; 86850; 86900; 86901; 90471; 90715; 93041; 94760; 96361; 96365; 96375; 96376; 99285; J0295; Q9967

== ENCOUNTER → 2025-05-13 | Outpatient (CLI) | payer MEDICARE ==
[2025-05-13 13:54] LABS: PLATELET COUNT, AUTOMATED 266 10^3/uL (150-450)
[2025-05-13 14:26] LABS: ALT/SGPT 33.0 U/L (7.0-40); AST/SGOT 21.0 U/L (<34); CALCIUM LEVEL 9.9 MG/DL (8.5-10.1); CARBON DIOXIDE LEVEL 22.0 MMOL/L (20-31); CHLORIDE LEVEL 105.0 MMOL/L (98-107); CREATININE FOR GFR 1.46 MG/DL (0.70-1.30); GLOMERULAR FILTRATION RATE 66.8 (>60); MAGNESIUM LEVEL 1.7 MG/DL (1.8-2.4); PHOSPHORUS LEVEL 3.4 MG/DL (2.5-4.9); POTASSIUM SERUM 4.6 MMOL/L (3.5-5.1); SODIUM LEVEL 141.0 MMOL/L (136-145)
== END ==
LOC: M LABDRWAD 10:08
PROVIDERS: ATTEND Internal Medicine Nephrology
DX: Z79.899 Other long term (current) drug therapy (principal)